=== PATIENT | male | born 1965 | race Caucasian/White ===

== ENCOUNTER 2019-07-10 10:41 | Emergency (ER) | payer BC ==
[~2019-07-10] VITALS: Ht 170.2 cm; Wt 83.9 kg
--- NOTE | 2019-07-10 11:30 | NUR ---
ASSUMED CARE FOR PT, "c/o diarrhea x 3 weeks, +N/V" PT AWAKE, ALERT, AAOX4, -SOB, NAD NOTED, VSS.
[2019-07-10] MEDS: IV NS 0.9% 1,000 ML BAG IV ONE ×2 (12:05→14:45)
[2019-07-10 12:14] LABS: BASOPHILS # (AUTO) 0.1 /CMM (0.0-0.2); BASOPHILS % (AUTO) 0.8 % (0.0-2.0); EOSINOPHILS % (AUTO) 2.4 % (0.0-6.0); HEMATOCRIT 52 % (39-51); HEMOGLOBIN 17.5 g/dL (13.5-17.5); LYMPHOCYTES # (AUTO) 3.1 /CMM (0.8-4.8); LYMPHOCYTES % (AUTO) 24.1 % (20.0-44.0); MEAN CORPUSCULAR HGB CONC 34 g/dl (31.0-36.0); MEAN CORPUSCULAR VOLUME 91 fL (80-96); MONOCYTES # (AUTO) 1.1 /CMM (0.1-1.30); MONOCYTES % (AUTO) 8.1 % (2.0-12.0); NEUTROPHILS # (AUTO) 8.4 /CMM (1.8-8.9); NEUTROPHILS % (AUTO) 64.6 % (43.0-81.0); PLATELET COUNT (AUTO) 285 /CMM (150-450); RED BLOOD CELL COUNT(AUTO) 5.68 MIL/uL (4.5-6.0)
[2019-07-10 12:22] LABS: CALCIUM, SERUM 10.7 mg/dL (8.5-10.1); CREATININE 1.5 mg/dL (0.6-1.3)
[2019-07-10 12:28] LABS: APPEARANCE,URINE Clear (CLEAR); BILIRUBIN,URINE Negative (NEGATIVE); BLOOD, URINE Small Ery/uL (NEGATIVE); COLOR,URINE Yellow (YELLOW); KETONES,URINE Negative (NEGATIVE); LEUKOCYTE ESTERASE ,URINE Negative (NEGATIVE); NITRITE, URINE Negative (NEGATIVE); PH,URINE 6.5 (5.0-8.0); PROTEIN,URINE 100 mg/dl (NEGATIVE); UGLUCOSE Negative (NEGATIVE); UROBILINOGEN,URINE 0.2 EU/dL (0.2)
[2019-07-10 12:28] LABS: ALBUMIN 4.3 g/dL (3.4-5.0); BILIRUBIN,DIRECT 0.1 mg/dL (0.0-0.2); BILIRUBIN,TOTAL 0.5 mg/dL (0.2-1.0); TOTAL PROTEIN, SERUM 8.5 g/dL (6.4-8.2)
[2019-07-10 12:56] LABS: WBC,URINE 0-2 /HPF (0-3)
[2019-07-10 12:57] LABS: BACTERIA,URINE Rare /HPF (None Seen); SQUAMOUS EPITHELIAL CELL,UR None Seen /HPF (None Seen)
[2019-07-10] MEDS ORDERED: IOHEXOL-300 100 ML VIAL IV ONE (13:02)
[2019-07-10] MEDS ORDERED: IV NS 0.9% 250 ML IV ONE (13:02)
[2019-07-10 15:10] VITALS: BP 133/93
--- NOTE | 2019-07-10 16:01 | NUR ---
Patient discharged to home in stable condition. Written and verbal after care instructions given. Patient verbalizes understanding of instruction. IV removed. Catheter intact and site benign. Pressure and 4x4 applied to site. No bleeding noted.
== END 2019-07-10 16:06 | disposition home or self-care (01) ==
LOC: ER 10:41
DX: R19.7 Diarrhea, unspecified (principal); R79.89 Other specified abnormal findings of blood chemistry; I10 Essential (primary) hypertension; F31.9 Bipolar disorder, unspecified
CPT/HCPCS: 36415; 74177; 80048; 80076; 81001; 83690; 85025; 96360; 96361; 99284; J7030 ×2; J7050; Q9967; 81000-TC

== ENCOUNTER 2023-10-31 10:48 | Emergency (ER) | payer BC ==
[~2023-10-31] VITALS: Ht 167.6 cm; Wt 85.7 kg
[2023-10-31] MEDS ORDERED: ONDANSETRON HCL/PF 4 MG/2 ML VIAL ONE (11:38)
[2023-10-31] MEDS ORDERED: FAMOTIDINE/PF INJ 20 MG/2 ML VIAL IV ONE (11:39)
[2023-10-31 12:01] LABS: BASOPHILS # (AUTO) 0.1 K/uL (0.0-0.2); BASOPHILS % (AUTO) 0.9 % (0.0-2.0); EOSINOPHILS # (AUTO) 0.1 K/uL (0.0-0.7); EOSINOPHILS % (AUTO) 1.1 % (0.0-6.0); HEMATOCRIT 47 % (39-51); HEMOGLOBIN 15.7 g/dL (13.5-17.5); LYMPHOCYTES # (AUTO) 2.3 K/uL (0.8-4.8); LYMPHOCYTES % (AUTO) 19.1 % (20.0-44.0); MEAN CORPUSCULAR HEMOGLOBIN 29 PG (26.0-33.0); MEAN CORPUSCULAR HGB CONC 33 g/dl (31.0-36.0); MEAN CORPUSCULAR VOLUME 87 fL (80-96); MONOCYTES % (AUTO) 8.4 % (2.0-12.0); NEUTROPHILS # (AUTO) 8.5 K/uL (1.8-8.9); NEUTROPHILS % (AUTO) 70.5 % (43.0-81.0); PLATELET COUNT (AUTO) 306 K/uL (150-450); RED CELL DISTRIBUTION WIDTH 14.4 % (11.5-15.0); WHITE BLOOD COUNT (AUTO) 12.1 K/uL (4.3-11.0)
[2023-10-31 12:11] LABS: APPEARANCE,URINE Clear (CLEAR); BILIRUBIN,URINE Negative (NEGATIVE); BLOOD, URINE Trace-intact Ery/uL (NEGATIVE); COLOR,URINE YELLOW (YELLOW); KETONES,URINE Negative (NEGATIVE); LEUKOCYTE ESTERASE ,URINE Negative (NEGATIVE); NITRITE, URINE Negative (NEGATIVE); PH,URINE 5.5 (5.0-8.0); PROTEIN,URINE 100 mg/dl (NEGATIVE); UGLUCOSE Negative (NEGATIVE); UROBILINOGEN,URINE 0.2 EU/dL (0.2)
[2023-10-31] MEDS: IV NS 0.9% 1,000 ML BAG IV ONE (12:14)
[2023-10-31] MEDS: FAMOTIDINE/PF INJ 20 MG/2 ML VIAL IV ONE (12:15)
[2023-10-31] MEDS: ONDANSETRON HCL/PF 4 MG/2 ML VIAL IVP ONE (12:15)
[2023-10-31 12:22] LABS: CALCIUM, SERUM 9.3 mg/dL (8.5-10.1); CREATININE 1.7 mg/dL (0.6-1.3); POTASSIUM 3.5 mmol/L (3.5-5.1)
[2023-10-31 12:27] LABS: BILIRUBIN,DIRECT 0.1 mg/dL (0.0-0.2); BILIRUBIN,TOTAL 0.6 mg/dL (0.2-1.0); TOTAL PROTEIN, SERUM 8.2 g/dL (6.4-8.2)
[2023-10-31 12:28] LABS: ADD URINE CULTURE NO; BACTERIA,URINE Few /HPF (None Seen); SQUAMOUS EPITHELIAL CELL,UR Few /HPF (None Seen); WBC,URINE 0-2 /HPF (0-3)
[2023-10-31 15:27] VITALS: BP 124/74; TEMP 98.4; O2SAT 98
== END 2023-10-31 15:31 | disposition home or self-care (01) ==
LOC: ER 10:53
DX: K80.20 Calculus of gallbladder without cholecystitis without obstruction (principal); R78.9 Finding of unspecified substance, not normally found in blood; R10.30 Lower abdominal pain, unspecified; E78.41 Elevated Lipoprotein(a); R19.7 Diarrhea, unspecified; F31.9 Bipolar disorder, unspecified; Z60.2 Problems related to living alone
CPT/HCPCS: 99285; 74176; 96374; 96361; 96375; 85025; 80048; 83690; 80076; 81001; 36415; J3490; J2405; J7030

== ENCOUNTER 2024-05-23 10:14 | Emergency (ER) | payer BC ==
[~2024-05-23] VITALS: Ht 172.7 cm; Wt 86.2 kg
[2024-05-23 10:32] VITALS: BP 136/105; TEMP 98.3
[2024-05-23] MEDS ORDERED: KETO10TA2 PO (11:22)
[2024-05-23] MEDS ORDERED: KETOROLAC TROMETHAMINE 15 MG/ML VIAL ONE (11:29)
[2024-05-23] MEDS: KETOROLAC TROMETHAMINE 15 MG/ML VIAL IM ONE (11:34)
[2024-05-23 11:36] VITALS: O2SAT 100
== END 2024-05-23 11:37 | disposition home or self-care (01) ==
LOC: ER 10:14
DX: D36.13 Benign neoplasm of peripheral nerves and autonomic nervous system of lower limb, including hip (principal); M79.662 Pain in left lower leg; F31.9 Bipolar disorder, unspecified; G89.29 Other chronic pain; I10 Essential (primary) hypertension; Z60.2 Problems related to living alone
CPT/HCPCS: 99283; 96372; J1885